=== PATIENT | female | born 1965 | race Caucasian/White ===

== ENCOUNTER → 2018-03-18 | Outpatient (REF) ==
[~2018-03-18] MED LIST: AMOX-559 PO; LOR5/325 PO; METF-411 PO; NO RTN MEDS
--- NOTE | 2018-03-18 16:01 | RADIOLOGY IMAGING REPORT ---
FACILITY: [facility] PATIENT NAME: Shanon Mcfarlane : 1965 MR: [id number] V: [id number] EXAM DATE: ORDERING PHYSICIAN: ISIAH SEVERINO TECHNOLOGIST: [facility] Patient: Shanon Mcfarlane : 1965 Visit/Account:[id number] Date of Sevice: 03/18/2018 KIDNEYS HISTORY: Left-sided pain, microhematuria COMPARISON: None. FINDINGS: Kidneys: Right kidney- 10.9 x 5.8 x 5.0 cm with normal parenchymal thickness and echogenicity. No ultrasound evident renal mass lesion or stone. Left kidney- 11.3 x 5.7 x 4.4 cm with normal parenchymal thickness and echogenicity. No ultrasound e vident renal mass lesion or stone. Uniform and symmetric blood flow in each kidney by Doppler ultrasound. Hydronephrosis: None. Bladder: Morphologically unremarkable. Bilateral ureteric jets visualized. There is a small post vo id residual of 21 mL. Abdominal aorta and IVC: Patent by Doppler ultrasound. Incidentally noted are small polyps within th e gallbladder. IMPRESSION: Normal renal ultrasound Report Dictated By: Carlton Hurd at 03/18/2018 3:53 PM Report E-Signed By: Carlton Hurd at 03/18/2018 3:56 PM WSN:[id number]
== END ==
LOC: US 01:15
PROVIDERS: ATTEND Family Medicine
DX: R10.9 Unspecified abdominal pain (principal); R31.9 Hematuria, unspecified
CPT/HCPCS: 76705

== ENCOUNTER → 2018-09-29 | Outpatient (REF) ==
[~2018-09-29] MED LIST changes: -METF-411 PO; +METF-450 PO
--- NOTE | 2018-09-29 19:07 | RADIOLOGY IMAGING REPORT ---
FACILITY: [facility] [place] PATIENT NAME: Shanon Mcfarlane : 1965 MR: [id number] V: [id number] EXAM DATE: ORDERING PHYSICIAN: JES LONDON TECHNOLOGIST: Location: [facility] Patient: Sahnon Mcfarlane : 1965 Visit/Account:[id number] Date of Sevice: 09/29/2018 3 views right shoulder Indication: Fall, pain Comparison: Unavailable Findings: Bony alignment is anatomic. No fracture or acute destructive osseous process. No significant underlyi ng degenerative change. Limited views of the right upper lung zone are unremarkable. Visualized right acromioclavicular joint is unremarkable. IMPRESSION: 1. No acute osseous abnormality right shoulder. Report Dictated By: Husam Franco MD at 09/29/2018 7:03 PM Report E-Signed By: Husam Franco MD at 09/29/2018 7:03 PM WSN:[id number]
== END ==
LOC: RAD 16:03
PROVIDERS: ATTEND Nurse Practitioner
DX: M25.511 Pain in right shoulder (principal)

== ENCOUNTER → 2019-01-27 | Outpatient (CLI) | payer OTHER ==
[~2019-01-27] MED LIST changes: +SIMV-49 PO
== END ==
LOC: RESP 09:29
PROVIDERS: ATTEND Surgery
DX: Z02.9 Encounter for administrative examinations, unspecified (principal)

== ENCOUNTER 2019-03-11 00:19 | Day surgery (SDC) | payer OTHER ==
--- NOTE | 2019-01-27 14:34 | EKG ---
FACILITY: [facility] PATIENT NAME: PARMINDER GARRIDO : [id number] MR: [id number] V: [id number] EXAM DATE: ORDERING PHYSICIAN: PEREZ GALINDO TECHNOLOGIST: LV Test Reason : PRE OP Blood Pressure : / mmHG Vent. Rate : 069 BPM Atrial Rate : 069 BPM P-R Int : 146 ms QRS Dur : 106 ms QT Int : 426 ms P-R-T Axes : 051 104 042 degrees QTc Int : 456 ms Normal sinus rhythm Normal ECG No previous ECGs available Confirmed by PRABHA PRICE ([id number]) on 01/28/2019 1:05:58 PM Referred By: Confirmed By:PRABHA PRICE
[2019-03-11] VITALS (8 sets, daily range): BP systolic 89–113; BP diastolic 53–68
[~2019-03-11] VITALS: Ht 152.4 cm; Wt 69.9 kg
[2019-03-11] MEDS ORDERED: NORMOSOL R SOLN(*) 1000 ML BAG 1,000 ML IV PRN (07:00)
[2019-03-11] MEDS ORDERED: LIDOCAINE/SOD BICARB 8.4% SYR ID ONE (07:00)
[2019-03-11] MEDS ORDERED: LIDOCAINE MPF 1% 5 ML VIAL ONE (07:08)
[2019-03-11] MEDS ORDERED: PROPOFOL EMUL(*) 10MG/ML 20 ML 60 ML ONE (07:08)
[2019-03-11] MEDS ORDERED: AMOX-559 PO (08:22)
--- NOTE | 2019-03-11 08:23 | Short(Outpt) Discharge Summary ---
Discharge Summary Reason for Hosp/Final Diag: (1) LLQ pain Hospital Course & Plan: pt presented for colonoscopy. she tolerated the procedure well. path pending. she will be discharged home when criteria met. Discharge Instructions Home Meds Active Scripts Amoxicillin/Pot Clav 875-125 Mg Tab (AUGMENTIN 875-125 TABLET) 1 Each Tablet, 1 TAB PO BID for 7 Days, #14 TAB Prov:PEREZ GALINDO 03/11/19 Reported Medications Simvastatin (SIMVASTATIN) 20 Mg Tablet, 20 MG PO HS, TAB 01/27/19 Metformin Hcl (METFORMIN HCL) 500 Mg Tablet, PO BID, TAB 05/13/15 Diet: Regular Activity: As Tolerated Special Instructions: we will call you in 10 days with biopsy results. PEREZ GALINDO March 11, 2019 08:23
== END 2019-03-11 10:30 | disposition home or self-care (01) ==
LOC: OR 00:19
PROVIDERS: ATTEND Surgery
DX: K57.30 Diverticulosis of large intestine without perforation or abscess without bleeding (principal); E11.9 Type 2 diabetes mellitus without complications
CPT/HCPCS: 00811; 36416; 45380; 81025; 82948; 88305; J2001; J2704

== ENCOUNTER 2019-03-15 13:20 | Emergency (ER) | payer OTHER ==
--- NOTE | 2019-03-15 13:35 | ER Report ---
History and Physical Time Seen By MD: 13:25 Hx. of Stated Complaint: CHEST PAIN AFTER COLONOSCOPY, SOB. WAS TOLD TO COME HERE HPI/ROS CHIEF COMPLAINT: Chest pain HISTORY OF PRESENT ILLNESS: 53-year-old female patient presents to emergency room with complaint of chest pain. Patient states that she's been having chest pain for the past 4 days. She states this started after having a colonoscopy. She denies any fevers, chills, nausea, vomiting or diarrhea. Patient states the pain is worsened stress take deep breath in. Patient states she has discomfort that is intermittent, but he can be fairly significant. She states that she has been eating and drinking fine without any nausea or vomiting. Patient states there is nothing seems to make the pain better. She states that she does have worsening pain due to deep inspiration and typically is worse in the morning. Patient states she doesn't recall having an endoscopy, however does not believe that was the case. REVIEW OF SYSTEMS: Respiratory: No cough, no dyspnea. Cardiovascular: As noted above Gastrointestinal: No vomiting, no abdominal pain. Musculoskeletal: No back pain. Allergies: Coded Allergies: No Known Drug Allergies (Verified , 05/13/15) Home Meds Active Scripts Amoxicillin/Pot Clav 875-125 Mg Tab (AUGMENTIN 875-125 TABLET) 1 Each Tablet, 1 TAB PO BID for 7 Days, #14 TAB Prov:PEREZ DEJESUS 03/11/19 Reported Medications Simvastatin (SIMVASTATIN) 20 Mg Tablet, 20 MG PO HS, TAB 01/27/19 Metformin Hcl (METFORMIN HCL) 500 Mg Tablet, PO BID, TAB 05/13/15 Past Medical/Surgical History Patient has a past medical history of hyperlipidemia, right shoulder dislocation, occasional alcohol use. Patient has surgical history of tubal ligation, colonoscopy. Reviewed Nurses Notes: Yes Hx Smoking: Yes Smoking Status: Current: Every Day Smoker Exposure to Second Hand Smoke?: Yes Hx Substance Use Disorder: No Hx Alcohol Use: No (very occasional, few times a year) Constitutional Vital Sign - Last 24 Hours 03/15/19 03/15/19 03/15/19 03/15/19 13:25 13:25 13:30 13:50 Temp 98.3 Pulse 70 76 Resp 16 15 B/P (MAP) 117/63 (81) 117/63 101/62 (75) Pulse Ox 91 92 03/15/19 03/15/19 03/15/1921/19 14:00 14:20 14:30 14:50 Pulse 77 73 Resp 15 16 B/P (MAP) 107/64 (78) 99/47 (64) Pulse Ox 91 93 03/15/19 14:55 B/P (MAP) 106/55 (72) Physical Exam General Appearance: The patient is alert, has no immediate need for airway protection and no current signs of toxicity. Respiratory: Chest is non tender, lungs are clear to auscultation. Cardiac: regular rate and rhythm Gastrointestinal: Abdomen is soft and non tender, no masses, bowel sounds normal. Musculoskeletal: Neck: Neck is supple and non tender. Extremities have full range of motion and are non tender. Skin: No rashes or lesions. DIFFERENTIAL DIAGNOSIS: After history and physical exam differential diagnosis was considered for chest pain including but not limited to myocardial ischemia, pericarditis pulmonary embolus, chest wall pain, pleural inflammation and pulmonary infectious causes. Medical Decision Making Data Points Result Diagram: 03/15/19 1402 03/15/19 1402 Laboratory Hematology Test 03/15/19 14:02 Red Blood Count 4.91 M/uL (4.17-5.56) Mean Corpuscular Volume 91.0 fL (80.0-96.0) Mean Corpuscular Hemoglobin 30.2 pg (26.0-33.0) Mean Corpuscular Hemoglobin Concent 33.1 g/dL (32.0-36.0) Red Cell Distribution Width 13.8 % (11.5-14.5) Mean Platelet Volume 8.1 fL (7.2-11.1) Neutrophils (%) (Auto) 58.0 % (39.4-72.5) Lymphocytes (%) (Auto) 31.7 % (17.6-49.6) Monocytes (%) (Auto) 8.3 % (4.1-12.4) Eosinophils (%) (Auto) 1.4 % (0.4-6.7) Basophils (%) (Auto) 0.6 % (0.3-1.4) Nucleated RBC Relative Count (auto) 0.0 /100WBC Neutrophils # (Auto) 4.5 K/uL (2.0-7.4) Lymphocytes # (Auto) 2.4 K/uL (1.3-3.6) Monocytes # (Auto) 0.6 K/uL (0.3-1.0) Eosinophils # (Auto) 0.1 K/uL (0.0-0.5) Basophils # (Auto) 0.0 K/uL (0.0-0.1) Nucleated RBC Absolute Count (auto) 0.00 K/uL D-Dimer Quantitative (PE/DVT) < 0.27 ug/ml (0-0.50) Sodium Level 141 mmol/L (137-145) Potassium Level 4.2 mmol/L (3.5-5.0) Chloride Level 107 mmol/L (98-107) Carbon Dioxide Level 28 mmol/L (22-31) Blood Urea Nitrogen 17 mg/dl (7-18) Creatinine 0.90 mg/dl (0.52-1.04) Glomerular Filtration Rate Calc > 60.0 Random Glucose 100 mg/dl (75-110) Calcium Level 8.7 mg/dl (8.4-10.2) Total Bilirubin 0.3 mg/dl (0.2-1.3) Aspartate Amino Transf (AST/SGOT) 42 U/L (0-35) Alanine Aminotransferase (ALT/SGPT) 45 U/L (0-56) Alkaline Phosphatase 83 U/L (0-126) Troponin I < 0.012 ng/ml Total Protein 6.7 g/dl (6.3-8.2) Albumin 3.6 g/dl (3.5-5.0) Chemistry Test 03/15/19 14:02 White Blood Count 7.7 k/uL (4.5-11.0) Red Blood Count 4.91 M/uL (4.17-5.56) Hemoglobin 14.8 g/dL (12.0-16.0) Hematocrit 44.7 % (34.0-47.0) Mean Corpuscular Volume 91.0 fL (80.0-96.0) Mean Corpuscular Hemoglobin 30.2 pg (26.0-33.0) Mean Corpuscular Hemoglobin Concent 33.1 g/dL (32.0-36.0) Red Cell Distribution Width 13.8 % (11.5-14.5) Platelet Count 231 K/uL (150-450) Mean Platelet Volume 8.1 fL (7.2-11.1) Neutrophils (%) (Auto) 58.0 % (39.4-72.5) Lymphocytes (%) (Auto) 31.7 % (17.6-49.6) Monocytes (%) (Auto) 8.3 % (4.1-12.4) Eosinophils (%) (Auto) 1.4 % (0.4-6.7) Basophils (%) (Auto) 0.6 % (0.3-1.4) Nucleated RBC Relative Count (auto) 0.0 /100WBC Neutrophils # (Auto) 4.5 K/uL (2.0-7.4) Lymphocytes # (Auto) 2.4 K/uL (1.3-3.6) Monocytes # (Auto) 0.6 K/uL (0.3-1.0) Eosinophils # (Auto) 0.1 K/uL (0.0-0.5) Basophils # (Auto) 0.0 K/uL (0.0-0.1) Nucleated RBC Absolute Count (auto) 0.00 K/uL D-Dimer Quantitative (PE/DVT) < 0.27 ug/ml (0-0.50) Glomerular Filtration Rate Calc > 60.0 Calcium Level 8.7 mg/dl (8.4-10.2) Total Bilirubin 0.3 mg/dl (0.2-1.3) Aspartate Amino Transf (AST/SGOT) 42 U/L (0-35) Alanine Aminotransferase (ALT/SGPT) 45 U/L (0-56) Alkaline Phosphatase 83 U/L (0-126) Troponin I < 0.012 ng/ml Total Protein 6.7 g/dl (6.3-8.2) Albumin 3.6 g/dl (3.5-5.0) Coagulation Test 03/15/19 14:02 D-Dimer Quantitative (PE/DVT) < 0.27 ug/ml EKG/Imaging EKG Interpretation 12 lead EKG: Rhythm: normal sinus rhythm [place]: normal QRS: Right bundle branch block ST segments: normal Imaging 2 VIEWS CHEST INDICATION: Chest pain and shortness of breath. COMPARISON: None available FINDINGS: The lungs are clear. No effusion or pneumothorax is seen. Heart size and media stinal contours are normal. IMPRESSION: 1. No radiographic evidence of active disease. Report Dictated By: Grayson Campos at 03/15/2019 2:32 PM Report E-Signed By: Grayson Campos at 03/15/2019 2:33 PM ED Course/Re-evaluation ED Course Patient was admitted to an exam room, history and physical were obtained. Differential diagnoses were considered. On examination lungs are clear, heart is regular, abdomen soft nontender. An IV was started, a CBC, CMP, troponin, EKG, chest x-ray were done. The lab results were unremarkable. Troponin was negative. EKG showed a normal sinus rhythm with a right bundle branch block. Chest x-ray showed no acute cardiopulmonary processes. I discussed the findings with the patient. I believe that her chest pain is likely related to esophagitis. I discussed the findings with the patient and her daughter. We will go ahead and discharge her home at this time. We will do Magic mouthwash to help with any esophageal irritation and discomfort. Patient and her daughter verbalized understanding of plan. I would like her to follow-up with her primary care provider in the next week. She is to return to the emergency room if condition worsens. Decision to Disposition Date: March 15, 2019 Decision to Disposition Time: 14:49 Depart Departure Latest Vital Signs Vital Signs Date Time Temp Pulse Resp B/P (MAP) Pulse Ox O2 Delivery O2 Flow Rate FiO2 03/15/19 14:55 106/55 (72) 03/15/19 14:50 73 16 93 03/15/19 13:25 98.3 Impression: Primary Impression: Chest pain Condition: Improved Disposition: HOME OR SELF-CARE Patient Instructions: Chest Pain (ED) Additional Instructions: Increase fluid intake. Get plenty of rest. Take the medication as needed for pain. Follow up with Dr. Dejesus as scheduled. Return to the ER if condition worsens. Problem Qualifiers Primary Impression: Chest pain Chest pain type: other chest pain Qualified Codes: R07.89 - Other chest pain KENTON SINGH March 15, 2019 13:35
[2019-03-15] MEDS ORDERED: NS(*) 0.9% 1000 ML BAG 1,000 ML IV ONE (13:36)
[2019-03-15] MEDS ORDERED: ASPIRIN 81 MG CHEW PO ONE (13:40)
--- NOTE | 2019-03-15 13:54 | EKG ---
[place] [facility] NAME[place] PARMINDER GARRIDO : [id number] MR: [id number] V: [id number] EXAM DATE: ORDERING PHYSICIAN: KENTON SINGH TECHNOLOGIST: Test Reason : Blood Pressure : / mmHG Vent. Rate : 076 BPM Atrial Rate : 076 BPM P-R Int : 142 ms QRS Dur : 108 ms QT Int : 414 ms P-R-T Axes : 061 103 041 degrees QTc Int : 465 ms Sinus rhythm RBBB Abnormal ECG Confirmed by SHAKIR GONZALEZ ([id number]) on 03/15/2019 2:59:08 PM Referred By: Confirmed By:SHAKIR GONZALEZ
[2019-03-15 14:15] LABS: PLATELET COUNT, AUTOMATED 231 K/uL (150-450)
--- NOTE | 2019-03-15 14:38 | RADIOLOGY IMAGING REPORT ---
FACILITY: [facility] PATIENT NAME: Shanon Mcfarlane : 1965 MR: [id number] V: [id number] EXAM DATE: ORDERING PHYSICIAN: KENTON SINGH TECHNOLOGIST: [facility] Patient: Shanon Mcafrlane : 1965 Visit/Account:[id number] Date of Sevice: 03/15/2019 2 VIEWS CHEST INDICATION: Chest pain and shortness of breath. COMPARISON: None available FINDINGS: The lungs are clear. No effusion or pneumothorax is seen. Heart size and mediastinal contours are nor mal. IMPRESSION: 1. No radiographic evidence of active disease. Report Dictated By: Grayson Campos at 03/15/2019 2:32 PM Report E-Signed By: Grayson Campos at 03/15/2019 2:33 PM WSN:[id number]
[2019-03-15 14:55] VITALS: BP 106/55
== END 2019-03-15 15:01 | disposition home or self-care (01) ==
LOC: ER 13:35
DX: R07.89 Other chest pain (principal); I45.10 Unspecified right bundle-branch block
CPT/HCPCS: 71046; 84484; 85025; 85379; 93005; 96360; 99284; J7030; 82040; 82247; 82310; 82374; 82435; 82565; 82947; 84075; 84132; 84155; 84295; 84450; 84460; 84520

== ENCOUNTER → 2019-04-19 | Outpatient (REF) | payer OTHER ==
--- NOTE | 2019-04-21 08:38 | RADIOLOGY IMAGING REPORT ---
FACILITY: [facility] [place] PATIENT NAME: PARMINDER GARRIDO : [id number] MR: [id number] V: [id number] EXAM DATE: [id number] ORDERING PHYSICIAN: JES LONDON TECHNOLOGIST: Marisol Marquez PROCEDURE: BILATERAL DIGITAL SCREENING MAMMOGRAM WITH CAD ASSISTED INTERPRETATION & 3D TOMOSYNTHESIS. REASON FOR STUDY: Screening. FAMILY HISTORY OF BREAST CANCER: None. BREAST PROCEDURES/TREATMENTS: None. COMPARISON: 02/20/10. VIEWS OBTAINED: 2D & 3D full field CC & MLO. BREAST DENSITY: There are scattered areas of fibroglandular density throughout the breasts. MAMMOGRAM FINDINGS: There is an ovoid nodule in the upper outer quadrant of the Right breast in the middle depth that appeared to be present on the prior study. The parenchymal pattern has remained stable allowing for difference in mammographic technique & patient positioning. IMPRESSION: BIRADS 2: Benign finding. DIAGNOSTIC CATEGORY 2--BENIGN FINDING. RECOMMENDATIONS: ROUTINE MAMMOGRAM AND CLINICAL EVALUATION. Dictated by: Puja Bucio M.D. on 04/20/2019 at 15:55 Transcribed by: CARISSA on 04/21/2019 at 8:00 Approved by: Puja Bucio M.D. on 04/21/2019 at 8:35 [facility]
== END ==
LOC: MAMO 00:57 → EDSTATUS 07:19
PROVIDERS: ATTEND Nurse Practitioner
DX: Z12.31 Encounter for screening mammogram for malignant neoplasm of breast (principal)
CPT/HCPCS: 77063; 77067